=== PATIENT | female | born 1960 | race Two or more races ===

== ENCOUNTER 2018-03-13 11:58 | Day surgery (SDC) | payer BC, OTHER ==
[2018-03-13] MEDS ORDERED: PROPOFOL 200 MG/20 ML BOTTLE IV ONE (11:59)
[2018-03-13] MEDS ORDERED: IV LACTATED RINGERS SOLUTION 1,000 ML BAG IV ONE (11:59)
[2018-03-13] MEDS ORDERED: SIMETHICONE 40 MG/0.6 ML, 30ML BOTTLE MC ONE (11:59)
[2018-03-13 12:16] LABS: *BILIRUBIN,URIN NEGATIVE (NEGATIVE); *BLOOD, URINE NEGATIVE (NEGATIVE); *CLARITY,URINE SLIGHTLY CLOUDY (CLEAR); *COLOR,URINE YELLOW (YELLOW); *KETONES,URINE NEGATIVE (NEGATIVE); *UROBILINOGEN,URINE 0.2 E.U./dl (NORMAL); LEUKOCYTE ESTERASE ,URINE NEGATIVE (NEGATIVE); NITRITE, URINE NEGATIVE (NEGATIVE); PH,URINE 5.5 (5.0-8.0)
[2018-03-13 12:23] LABS: UGLUCOSE 2+ (NEGATIVE)
[2018-03-13 12:23] LABS: BASOPHILS % (AUTO) 0.6 % (0.0-2.0); EOSINOPHILS # (AUTO) 0.2 K/uL (0.0-0.7); EOSINOPHILS % (AUTO) 3.6 % (0.0-7.0); HEMATOCRIT 45.9 % (31.2-41.9); HEMOGLOBIN 15.3 g/dL (10.9-14.3); LYMPHOCYTES # (AUTO) 2.7 K/uL (20.0-40.0); LYMPHOCYTES % (AUTO) 43.7 % (20.5-51.5); MEAN CORPUSCULAR HGB CONC 33 g/dL (32.3-35.6); MEAN CORPUSCULAR VOLUME 84.2 fL (75.5-95.3); MONOCYTES # (AUTO) 0.4 K/uL (2.0-10.0); MONOCYTES % (AUTO) 6.3 % (0.0-11.0); NEUTROPHILS # (AUTO) 2.8 K/uL (1.8-8.9); NEUTROPHILS % (AUTO) 45.8 % (38.5-71.5); PLATELET COUNT (AUTO) 271 K/uL (179-408); RED BLOOD CELL COUNT(AUTO) 5.46 MIL/uL (3.63-4.92); WHITE BLOOD COUNT (AUTO) 6.1 K/uL (3.8-11.8)
[2018-03-13 12:30] LABS: CREATININE 0.9 mg/dL (0.6-1.3)
[2018-03-13 12:36] LABS: BILIRUBIN,TOTAL 0.3 mg/dL (0.2-1.0)
== END 2018-03-13 15:25 | disposition home or self-care (01) ==
LOC: DS 11:58
PROVIDERS: ATTEND Internal Medicine Gastroenterology
DX: Z12.11 Encounter for screening for malignant neoplasm of colon (principal); E11.9 Type 2 diabetes mellitus without complications; E78.00 Pure hypercholesterolemia, unspecified; I10 Essential (primary) hypertension; Z79.84 Long term (current) use of oral hypoglycemic drugs; Z79.899 Other long term (current) drug therapy; Z83.3 Family history of diabetes mellitus; Z82.49 Family history of ischemic heart disease and other diseases of the circulatory system; K64.8 Other hemorrhoids
CPT/HCPCS: 36415; 45378; 71045; 80053; 81001; 82962; 85025; 85730; 93005; J7120; A4217; A4663; J3490